=== PATIENT | male | born 1990 | race Caucasian/White ===

== ENCOUNTER 2017-07-04 10:57 | Emergency (ER) | payer SELFPAY ==
[2017-07-04 11:02] VITALS: BMI 31.6
[2017-07-04 11:03] VITALS: BP 118/81; PULSE 99; RESP 17; TEMP 98.4; O2SAT 98
== END 2017-07-04 11:29 | disposition left against medical advice (07) ==
LOC: H.ER 10:57
DX: Z02.89 Encounter for other administrative examinations (principal)

== ENCOUNTER 2017-09-28 10:44 | Emergency (ER) | payer OTHER ==
[2017-09-28 10:44] VITALS: BMI 31.6
[2017-09-28 10:53] VITALS: BP 136/66; PULSE 66; RESP 18; TEMP 97.7; O2SAT 99
[2017-09-28 11:46] LABS: BASO # 0.1 K/uL (0.0-0.2); BASO % 1.3 % (0.0-2.0); EOS # 0.1 K/uL (0.0-0.7); EOS % 2.3 % (0.0-4.0); HEMOGLOBIN 16.2 g/dL (12.0-18.0); LYMPH # 1.5 K/uL (1.0-4.3); MEAN CORPUSCULAR HEMOGLOBIN 29.1 pg (27.0-31.0); MEAN CORPUSCULAR HGB CONC 34.2 g/dL (33.0-37.0); MEAN PLATELET VOLUME 7.5 fl (7.2-11.7); MONO # 0.4 K/uL (0.0-0.8); MONO % 8.8 % (0.0-10.0); NEUT # 2.7 K/uL (1.8-7.0); NEUT % 55.6 % (50.0-75.0); NRBC % 0.1 % (0.0-0.0); RBC 5.57 Mil/uL (4.40-5.90); RED CELL DISTRIBUTION WIDTH 12.7 % (11.5-14.5); WHITE BLOOD COUNT 4.8 K/uL (4.8-10.8)
[2017-09-28 11:51] LABS: URINE BILIRUBIN NEGATIVE (NEGATIVE); URINE BLOOD NEGATIVE (NEGATIVE); URINE CLARITY CLEAR (Clear); URINE COLOR YELLOW (YELLOW); URINE GLUCOSE (UA) NEG (Normal); URINE LEUKOCYTE ESTERASE NEG Leu/uL (Negative); URINE PROTEIN NEGATIVE (NEGATIVE); URINE UROBILINOGEN 0.2-1.0 mg/dL (0.2-1.0)
[2017-09-28 12:09] LABS: ALB/GLOB RATIO 1.3 (1.0-2.1); ALBUMIN 4.4 g/dL (3.5-5.0); ALT/SGPT 36 U/L (21-72); AST/SGOT 33 U/L (17-59); BLOOD UREA NITROGEN 19 mg/dl (9-20); CALCIUM 9.6 mg/dL (8.4-10.2); GFR AFRICAN-AMERICAN > 60; GFR NON-AFRICAN AMERICAN > 60
--- NOTE | 2017-09-28 12:24 | ED PDOC ---
HPI: General Adult Time Seen by Provider: 09/28/17 11:14 Chief Complaint (Nursing): Male Genitourinary Chief Complaint (Provider): Left groin swelling History Per: Patient History/Exam Limitations: no limitations Onset/Duration Of Symptoms: Days Have you had recent travel within the past 21 days to any of the following countries: [place], [place], [place] or [place]?: No Current Symptoms Are (Timing): Still Present Severity: None (Denies pain) Additional Complaint(s): 27 yo male with no medical problems presents with left groin swelling x 2 weeks. Pt was he was seen by a specialist and Us completed. US showed a swollen lymph node and patient was told to f/u with PMD, Dr. Long. Pt states he has not called him to make an appointment because it takes too long to see him so he came to the ER. PT deneis pain. PT denies fever/chills, recent weight loss. Pt denies urinary symptoms. Past Medical History Reviewed: Historical Data, Nursing Documentation, Vital Signs Vital Signs: Last Vital Signs Temp 97.7 F 09/28/17 10:52 Pulse 66 09/28/17 10:52 Resp 18 09/28/17 10:52 BP 136/66 09/28/17 10:52 Pulse Ox 99 09/28/17 10:52 - Medical History PMH: No Chronic Diseases - Surgical History Surgical History: No Surg Hx - Family History Family History: States: Unknown Family Hx - Living Arrangements Living Arrangements: With Family - Social History Current smoker - smoking cessation education provided: No - Home Medications Home Medications: Ambulatory Orders Medication Instructions Recorded No Known Home Med 09/28/17 - Allergies Allergies/Adverse Reactions: Allergies Allergy/AdvReac Type Severity Reaction Status Date / Time No Known Allergies Allergy Verified 09/28/17 10:54 Review of Systems ROS Statement: Except As Marked, All Systems Reviewed And Found Negative Constitutional: Negative for: Fever, Chills Skin: Positive for: Other Physical Exam - Reviewed Nursing Documentation Reviewed: Yes Vital Signs Reviewed: Yes - Physical Exam Appears: Positive for: Well, Non-toxic, No Acute Distress Head Exam: Positive for: ATRAUMATIC, NORMAL INSPECTION, NORMOCEPHALIC Skin: Positive for: Normal Color, Warm, DRY Eye Exam: Positive for: Normal appearance ENT: Positive for: Normal ENT Inspection Neck: Positive for: Normal Respiratory: Negative for: Accessory Muscle Use, Respiratory Distress Gastrointestinal/Abdominal: Negative for: Tenderness Back: Positive for: Normal Inspection Extremity: Positive for: Normal ROM. Negative for: Tenderness Lymphatic: Positive for: Adenopathy (Left groin) Neurologic/Psych: Positive for: Alert, Oriented - Laboratory Results Result Diagrams: 09/28/17 11:30 09/28/17 11:30 - ECG O2 Sat by Pulse Oximetry: 99 Medical Decision Making Medical Decision Making: Labs and urine normal. Discussed possible biopsy and f/u with PMD. Disposition - Clinical Impression Clinical Impression: Lymphadenopathy - Patient ED Disposition Is Patient to be Admitted: No - Disposition Referrals: Jacob Prakash MD [Family Provider] - Disposition: Routine/Home Disposition Time: 12:27 Condition: GOOD Instructions: Lymph Node Biopsy, Lymphedema (DC)
== END 2017-09-28 12:34 | disposition home or self-care (01) ==
LOC: H.ER 10:44
DX: R50.9 Fever, unspecified (principal)